=== PATIENT | female | born 1945 | race Hispanic/Latino ===

== ENCOUNTER 2024-10-05 23:46 | Emergency (ER) | payer OTHER ==
[~2024-10-05] VITALS: Ht 165.1 cm; Wt 66.2 kg
--- NOTE | 2024-10-06 01:21 | HMCIMG ---
CT HEAD/BRAIN W/O CONTRAST HISTORY: Status post fall COMPARISON: 10/06/2024 TECHNIQUE: Multiple sequential axial images of the head were obtained from the base of the skull through vertex. Patient was not given contrast through intravenous route. FINDINGS: The ventricles and extraventricular CSF spaces are dilated consistent with cerebral atrophy. Nonspecific white matter changes seen. Right frontal scalp soft tissue swelling is seen. There is no midline shift, mass effect or herniation. No acute intracranial bleed is seen. Visualized portion of the paranasal sinuses are grossly within normal limits. IMPRESSION: 1. No acute intracranial bleed is seen. 2. Atrophy with white matter changes. CT was performed with one or more following dose reduction techniques: automated exposure control, adjustment of the mA and kv according to patient's size, or use of a iterative reconstruction technique.
--- NOTE | 2024-10-06 01:28 | HMCIMG ---
CT CERVICAL SPINE W/O CONTRAST HISTORY: Status post fall COMPARISON: None TECHNIQUE: Multiple sequential axial images of the cervical spine were obtained including post processing sagittal and coronal reconstruction images. Patient was not given contrast through intravenous route. FINDINGS: There are degenerative changes with cervical spine spondylosis. Disc space narrowings are seen at C3-4 through C6-7 levels. There is straightening of normal lordotic cervical curvature which may be related to muscle spasm or positioning. There is no loss of vertebral height. Evaluation for disc and cord pathology is limited with CT study. No evidence of fracture or dislocation is seen. IMPRESSION: 1. No fracture is seen. DJD with cervical spine spondylosis. CT was performed with one or more following dose reduction techniques: automated exposure control, adjustment of the mA and kv according to patient's size, or use of a iterative reconstruction technique.
--- NOTE | 2024-10-06 01:34 | HMCIMG ---
CT MAXILLOFACIAL W/O CONTRAST HISTORY: No additional history given. COMPARISON: None TECHNIQUE: Multiple sequential high-resolution axial images of the paranasal sinuses were obtained. Postprocessing sagittal and coronal reconstruction images were also obtained. Patient was not given contrast through intravenous route. FINDINGS: Right periorbital soft tissue swelling is seen. Evaluation of the lower teeth are limited due to orthopedic fixation wire with artifacts and soft tissue air. Clinical correlation is recommended. Nasal septum is grossly midline. There is no evidence of mucoperiosteal thickening involving the paranasal sinuses. The infundibula are patent bilaterally. No acute displaced fracture is seen. There is no evidence of air-fluid level in the paranasal sinuses. Parapharyngeal fat planes are preserved bilaterally. IMPRESSION: 1. No acute displaced fracture is seen. Right frontal scalp soft tissue swelling. Postprocedural changes noted of the mandible with soft tissue emphysema and clinical correlation is recommended. Evaluation is limited due to artifacts. CT was performed with one or more following dose reduction techniques: automated exposure control, adjustment of the mA and kv according to patient's size, or use of a iterative reconstruction technique.
--- NOTE | 2024-10-06 02:15 | ERN ---
General Chief Complaint: Head Injury Stated Complaint: HEAD INJURY Time Seen by MD: 23:49 Time Seen by Midlevel: 23:49 Source: patient History of Present Illness Initial Comments Patient is an 79-year-old female presenting to the ER following a mechanical ground level fall. Patient states she bent forward to pickle maker an iron that fell she reports falling and hitting the right side of her head. Denies any loss of consciousness. Denies being on blood thinners. Patient has no other complaints other than pain to the right side of her head. Allergies: Coded Allergies: No Known Drug Allergies (Unverified Allergy, Unknown, 03/20/18) Past Medical History Past Medical History: Arthritis, Cancer, Diabetes-Type II, Hypertension Medical History Other: HX OF COLON CA Past Surgical History: Other Surgical History Other: COLON SX, RIGHT ARM SURGERY ROS Dictation CONSTITUTIONAL: Negative except for HPI HEAD/FACE: Negative except for HPI EENT: Negative except for HPI RESPIRATORY: Negative except for HPI GASTROINTESTINAL/ABDOMINAL: Negative except for HPI GENITOURINARY: Negative except for HPI MUSCULOSKELETAL: Negative except for HPI INTEGUMENTARY: Negative except for HPI NEUROLOGICAL/PSYCH: Negative except for HPI HEMATOLOGIC/LYMPHATIC: Negative except for HPI All Systems Negative, Except as noted above. 13 point review of systems assessed and all negative except for above. Physical Exam Physical Exam Dictation Vital Signs reviewed General Appearance: Alert, oriented x 3, no acute distress, well developed, nourished. Head and Face: Right frontal hematoma Eyes: PERRL, pink conjunctivas, eyelid no trauma, anterior chamber with arcus senilis. Ears: Pinnas intact and no signs of trauma or erythema ear canals clear and no discharge TM no erythema Nose: No discharge, no bleeding. Oropharynx: Mouth normal, tongue pink, pharynx clear,no erythema, tonsils no exudates, no abscesses noted, mucous membrane moist Neck: Supple, non-tender, no thyromegaly, no masses, no JVD, no bruits Breast:Deferred Chest:No tenderness, no crepitus, no paradoxical movement, no retractions Lungs:Clear, well-ventilated, symmetric, no rales, no wheezing, no rhonchi, no stridor, good breath sounds bilaterally Heart: Regular rate, regular rhythm, no murmur, no gallops Vascular: no peripheral edema, Abdomen: Soft, positive bowel sounds, nondistended, no guarding, nontender, no rebound, no masses no hepatomegaly, no splenomegaly, no Stuart's sign, no hernias. Rectal: Deferred Genital: Deferred Neurological: Normal speech, motor function intact, sensory function intact Musculoskeletal: Neck nontender, full range of motion, back nontender, full range of motion, Extremities: nontender, full range of motion Skin: Color pink, dry, no turgor, no rash, no lacerations, no abrasions, no contusions. Lymphatic: Deferred MDM MDM: Differential diagnosis: Closed head injury, concussion, intracranial bleed, skull fracture There are no social concerns with this patient. Prescription drug management Prescriptions will include: None Medical management and examination interpretation discussions were had by me with other qualified healthcare professionals as indicated for the patient's care. ED Course Orders Procedure Category Date Status Time Ct Head/Brain W/O CT 10/06/24 Resulted Contrast 00:00 Ct Cervical Spine W/O CT 10/06/24 Resulted Contrast 00:00 Ct Maxillofacial W/O CT 10/06/24 Resulted Contrast 00:00 Hydrocodone/Apap PHA 10/06/24 Complete 5/325 ([place]hin 5/325mg) 02:30 Current Medications Medications (Trade) Dose Ordered Sig/Augusto Route PRN Reason Start Time Stop Time Status Last Admin Dose Admin Acetaminophen/ Hydrocodone Bitart (NORco 5/325MG) 1 tab ONCE ONCE PO 10/06/24 02:30 10/06/24 02:32 DC 10/06/24 02:28 Vital Signs Date Time Temp Pulse Resp B/P (MAP) Pulse Ox O2 Delivery O2 Flow Rate FiO2 10/06/24 02:47 98.1 62 18 144/58 99 Room Air* 0 21 10/06/24 00:07 98.2 60 18 165/57 97 Room Air* 0 21 10/05/24 23:48 98.1 62 18 152/66 99 Room Air 0 [place] [address] [address] IMAGING REPORT Signed PATIENT: YANELY KHAN MR#: [id number] : 1945 SEX: F AGE: 79 LOCATION: [facility] ORDER 0000 STATUS: [facility] REPORT#: [id number] SERVICE 0000 REASON: fall ORDERING PHYSICIAN: ANATOLY BURNETT PROCEDURE: MAXFACI WO - CT MAXILLOFACIAL W/O CONTRAST CT MAXILLOFACIAL W/O CONTRAST HISTORY: No additional history given. COMPARISON: None TECHNIQUE: Multiple sequential high-resolution axial images of the paranasal sinuses were obtained. Postprocessing sagittal and coronal reconstruction images were also obtained. Patient was not given contrast through intravenous route. FINDINGS: Right periorbital soft tissue swelling is seen. Evaluation of the lower teeth are limited due to orthopedic fixation wire with artifacts and soft tissue air. Clinical correlation is recommended. Nasal septum is grossly midline. There is no evidence of mucoperiosteal thickening involving the paranasal sinuses. The infundibula are patent bilaterally. No acute displaced fracture is seen. There is no evidence of air-fluid level in the paranasal sinuses. Parapharyngeal fat planes are preserved bilaterally. IMPRESSION: 1. No acute displaced fracture is seen. Right frontal scalp soft tissue swelling. Postprocedural changes noted of the mandible with soft tissue emphysema and clinical correlation is recommended. Evaluation is limited due to artifacts. CT was performed with one or more following dose reduction techniques: automated exposure control, adjustment of the mA and kv according to patient's size, or use of a iterative reconstruction technique. DICTATED BY: JAYNA LUJAN MD DATE: 10/06/24124 ELECTRONICALLY SIGNED BY: JAYNA LUJAN MD DATE: 10/06/24133 [place] [id number] IMAGING REPORT Signed PATIENT: YANELY KHAN MR#: [id number] : 1945 SEX: F AGE: 79 LOCATION: [facility] ORDER 0000 STATUS: REG [facility] REPORT#: [id number] SERVICE 0000 REASON: fall ORDERING PHYSICIAN: ANATOLY BURNETT PROCEDURE: HEAD WO - CT HEAD/BRAIN W/O CONTRAST CT HEAD/BRAIN W/O CONTRAST HISTORY: Status post fall COMPARISON: 10/06/2024 TECHNIQUE: Multiple sequential axial images of the head were obtained from the base of the skull through vertex. Patient was not given contrast through intravenous route. FINDINGS: The ventricles and extraventricular CSF spaces are dilated consistent with cerebral atrophy. Nonspecific white matter changes seen. Right frontal scalp soft tissue swelling is seen. There is no midline shift, mass effect or herniation. No acute intracranial bleed is seen. Visualized portion of the paranasal sinuses are grossly within normal limits. IMPRESSION: 1. No acute intracranial bleed is seen. 2. Atrophy with white matter changes. CT was performed with one or more following dose reduction techniques: automated exposure control, adjustment of the mA and kv according to patient's size, or use of a iterative reconstruction technique. DICTATED BY: JAYNA LUJAN MD DATE: 10/06/24116 ELECTRONICALLY SIGNED BY: JAYNA LUJAN MD DATE: 10/06/[address] [address] IMAGING REPORT Signed PATIENT: YANELY KHAN MR#: [id number] : 1945 SEX: F AGE: 79 LOCATION: [facility] ORDER 0000 [facility]: [facility] REPORT#: [id number] SERVICE 0000 REASON: fall ORDERING PHYSICIAN: ANATOLY BURNETT PROCEDURE: C SPIN WO - CT CERVICAL SPINE W/O CONTRAST CT CERVICAL SPINE W/O CONTRAST HISTORY: Status post fall COMPARISON: None TECHNIQUE: Multiple sequential axial images of the cervical spine were obtained including post processing sagittal and coronal reconstruction images. Patient was not given contrast through intravenous route. FINDINGS: There are degenerative changes with cervical spine spondylosis. Disc space narrowings are seen at C3-4 through C6-7 levels. There is straightening of normal lordotic cervical curvature which may be related to muscle spasm or positioning. There is no loss of vertebral height. Evaluation for disc and cord pathology is limited with CT study. No evidence of fracture or dislocation is seen. IMPRESSION: 1. No fracture is seen. DJD with cervical spine spondylosis. CT was performed with one or more following dose reduction techniques: automated exposure control, adjustment of the mA and kv according to patient's size, or use of a iterative reconstruction technique. DICTATED BY: JAYNA LUJAN MD DATE: 10/06/24117 ELECTRONICALLY SIGNED BY: JAYNA LUJAN MD DATE: 10/06/24127 DX & DISP Disposition: Discharge Departure Impression: Primary Impression: Fall Additional Impression: Scalp contusion Condition: Stable Referrals: ANATOLY DIAZ MD (PCP) I have reviewed the case, and I agree with, Diagnosis and Plan I performed the substantive portion of the visit. I have reviewed and personally made and approve the management plan that is documented in the note by myself or the EDU. I acknowledge for responsibility for the patient's management plan. ANATOLY BURNETT Oct 06, 2024 02:15
[2024-10-06] MEDS: HYDROcodone/APAP 5/325 1 TAB TABLET PO ONE (02:28)
--- NOTE | 2024-10-06 02:30 | NUR ---
WOUND CARE DONE ORDERED
[2024-10-06 02:47] VITALS: BP 144/58; PULSE 62; RESP 18; TEMP 98; O2SAT 99
== END 2024-10-06 02:48 | disposition home or self-care (01) ==
LOC: EDH 23:46
DX: S00.03XA Contusion of scalp, initial encounter (principal); E11.9 Type 2 diabetes mellitus without complications; I10 Essential (primary) hypertension; Z85.038 Personal history of other malignant neoplasm of large intestine; X58.XXXA Exposure to other specified factors, initial encounter; Y93.89 Activity, other specified; Y92.89 Other specified places as the place of occurrence of the external cause; Y99.8 Other external cause status
CPT/HCPCS: 70450; 70486; 72125; 99284